=== PATIENT | female | born 1995 | race Asian ===

== ENCOUNTER 2020-12-13 14:53 | Emergency (ER) | payer BC ==
[~2020-12-13] VITALS: Ht 160 cm; Wt 110.0 kg
[2020-12-13] MEDS ORDERED: ONDA4TAB6 PO (16:08)
--- NOTE | 2020-12-13 16:41 | NUR ---
Patient was seen and assessed by provider. Patient refused to given urine sample, Latasha CHILDS aware ok with this and patient ready for discharge.
--- NOTE | 2020-12-13 16:42 | NUR ---
called patient and notified regarding prescription called in to [facility] per request and Jimenez CHILDS request that I call patient to notify her regarding negative COVID results at which was completed also.
== END 2020-12-13 16:43 | disposition home or self-care (01) ==
LOC: ER 14:54
DX: R11.0 Nausea (principal); Z20.822 Contact with and (suspected) exposure to COVID-19; R50.9 Fever, unspecified; R53.1 Weakness; R05 Cough; R53.83 Other fatigue; Z79.899 Other long term (current) drug therapy
CPT/HCPCS: 87635; 99283; C9803